=== PATIENT | male | born 1980 | race Caucasian/White ===

== ENCOUNTER 2016-10-08 11:00 | Emergency (ER) | payer OTHER ==
--- NOTE | 2016-10-08 11:24 | ED NURSING NOTES ---
Clinical Report - Nurses [facility] [address] [place] [address] 10/08/2016 11:03 Patient: NIKOS BANG TRIAGE Triage time 11:08. Acuity: LEVEL 5. Chief Complaint: CAT BITE. --11:15 Carter Cannon R.N. 11:08 10/08/16. BP: 148/93. HR: 86. RR: 16. O2 saturation: 100%. Temp: 98 F (oral). --11:15 Carter Cannon R.N. Weight: 90.7 kg. Height/Length: 71 inches. BMI: 27.9. --11:15 Carter Cannon R.N. Medications Dexilant Oral (Capsule Delayed Release 60 mg) 1 capsule, daily. Ondansetron HCl Oral. PriLOSEC Oral 20 mg, daily. Propranolol HCl Oral (Tablet 40 mg) 1-1/2 tablets, 3x a day. Venlafaxine HCl ER Oral (Tablet Extended Release 24 Hour 75 mg) 1 tablet, daily. Zaleplon Oral (Capsule 5 mg) 1-2 capsules, at hs. --11:12 Carter Cannon R.N. Medication/allergy information source: the patient. --11:15 Carter Cannon R.N. Allergies No Known Drug Allergy. --11:12 Carter Cannon R.N. History Arrived by private vehicle. Historian: patient. ( Cat bit on his left hand as he was trying to pick the cat up and scratched his left and right arm as it was trying to get away.). Location of injuries: right forearm, right wrist, right hand, left forearm, left wrist and left hand. This occurred last night. Occurred at home. Circumstances: This was an "unprovoked" attack. The patient has had bloody drainage from wound since initial complaint (today). The animal reportedly appeared well and is up to date on immunizations. Treatment ADMISSION LIAISON: Performed wound care and applied bandage. Took ibuprofen. PAST MEDICAL HX: Date of last tetanus shot cannot be recalled. SOCIAL HX: Smoker- current status unknown (vape). --11:15 Carter Cannon R.N. Interventions ID band on patient. To room. --11:15 Carter Cannon R.N. PHYSICAL ASSESSMENT Ambulatory to room. GENERAL / NEURO / PSYCH: Alert. Oriented X 4. Appears in no acute distress. HEENT: Pupils equal, round and reactive to light. Head non-tender. RESPIRATORY: Respirations not labored. Breath sounds within normal limits. CVS: Normal heart rate and rhythm. Pulses within normal limits. Capillary refill less than 2 seconds. EXTREMITIES: Extremities exhibit normal ROM. Neuro-vascular status intact to the extremity. SKIN: Skin is warm and dry. ( abrasions on both arms and cat bite on the left hand). --11:16 Carter Cannon R.N. NURSING PROGRESS NOTES Reassurance given. Patient identifiers checked. Side rails up x 1. Bed placed in lowest position. Brakes of bed on. Patient ready for evaluation- OIL PROCESSING TECHNICIAN notified. --11:16 Carter Cannon R.N. DISPOSITION / DISCHARGE Condition at departure: improved. No learning barriers present. Discharge instructions provided and reviewed with the patient and parent. Patient verbalized understanding. Written instructions provided in Indonesian. The patient was discharged home and accompanied by parent. He left the Emergency Department ambulatory and via private vehicle. Parent driving. --: Carter Cannon R.N. 11:26 10/08/16. BP: 114/55. HR: 56. RR: 16. O2 saturation: 99%. Temp: 98.4 F. Pain level now: 06/26. --11:27 Carter Cannon R.N. Departure time: :. --11: Carter Cannon R.N. Locked/Released at 10/08/2016 11:28 by Carter Cannon R.N.
--- NOTE | 2016-10-08 11:24 | ED NURSING NOTES ---
Clinical Report - Nurses [facility] [address] [place] [address] 10/08/2016 11:03 Patient: NIKOS BANG TRIAGE Triage time 11:08. Acuity: LEVEL 5. Chief Complaint: CAT BITE. --11:15 Carter Cannon R.N. 11:08 10/08/16. BP: 148/93. HR: 86. RR: 16. O2 saturation: 100%. Temp: 98 F (oral). --11:15 Carter Cannon R.N. Weight: 90.7 kg. Height/Length: 71 inches. BMI: 27.9. --11:15 Carter Cannon R.N. Medications Dexilant Oral (Capsule Delayed Release 60 mg) 1 capsule, daily. Ondansetron HCl Oral. PriLOSEC Oral 20 mg, daily. Propranolol HCl Oral (Tablet 40 mg) 1-1/2 tablets, 3x a day. Venlafaxine HCl ER Oral (Tablet Extended Release 24 Hour 75 mg) 1 tablet, daily. Zaleplon Oral (Capsule 5 mg) 1-2 capsules, at hs. --11:12 Carter Cannon R.N. Medication/allergy information source: the patient. --11:15 Carter Cannon R.N. Allergies No Known Drug Allergy. --11:12 Carter Cannon R.N. History Arrived by private vehicle. Historian: patient. ( Cat bit on his left hand as he was trying to pick the cat up and scratched his left and right arm as it was trying to get away.). Location of injuries: right forearm, right wrist, right hand, left forearm, left wrist and left hand. This occurred last night. Occurred at home. Circumstances: This was an "unprovoked" attack. The patient has had bloody drainage from wound since initial complaint (today). The animal reportedly appeared well and is up to date on immunizations. 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 Took ibuprofen. PAST MEDICAL HX: Date of last tetanus shot cannot be recalled. SOCIAL HX: Smoker- current status unknown (vape). --11:15 Carter Cannon R.N. Interventions ID band on patient. To room. --11:15 Carter Cannon R.N. PHYSICAL ASSESSMENT Ambulatory to room. GENERAL / NEURO / PSYCH: Alert. Oriented X 4. Appears in no acute distress. HEENT: Pupils equal, round and reactive to light. Head non-tender. RESPIRATORY: Respirations not labored. Breath sounds within normal limits. CVS: Normal heart rate and rhythm. Pulses within normal limits. Capillary refill less than 2 seconds. EXTREMITIES: Extremities exhibit normal ROM. Neuro-vascular status intact to the extremity. SKIN: Skin is warm and dry. ( abrasions on both arms and cat bite on the left hand). --11:16 Carter Cannon R.N. NURSING PROGRESS NOTES Reassurance given. Patient identifiers checked. Side rails up x 1. Bed placed in lowest position. Brakes of bed on. Patient ready for evaluation- CONCRETE BLOCK PLANT SUPERVISOR notified. --11:16 Carter Cannon R.N. DISPOSITION / DISCHARGE Condition at departure: improved. No learning barriers present. Discharge instructions provided and reviewed with the patient and parent. Patient verbalized understanding. Written instructions provided in Mongolian. The patient was discharged home and accompanied by parent. He left the Emergency Department ambulatory and via private vehicle. Parent driving. --: Carter Cannon R.N. 11:26 10/08/16. BP: 114/55. HR: 56. RR: 16. O2 saturation: 99%. Temp: 98.4 F. Pain level now: 06/26. --11:27 Carter Cannon R.N. Departure time: :. --11: Carter Cannon R.N. Locked/Released at 10/08/2016 11:28 by Carter Cannon R.N.
--- NOTE | 2016-10-08 11:25 | ED ORDER SUMMARY ---
..... Patient: NIKOS BANG OrderSheet [facility] VisitID: [id number] [place] [address] 35y, M Registration Date/Time: 10/08/2016 ORDER SHEET Weight: 90.7 kg Allergies: No Known Drug Allergy GENERAL ORDERS: Dress Wounds (gauze with kerlex) (bacitracin) (both wrist/hands) (10/08/2016 Akash Tejeda) Irrigate Wounds (10/08/2016 Akash Tejeda) MEDICATION ORDERS: Augmentin PO 875 mg (NOW) (10/08/2016 Akash Tejeda) Etpdckn-Osbaje-Iswju Pertussis IM 0.5 mL (NOW, per protocol) (10/08/2016 Akash Tejeda) Percocet PO 10/650 mg (HIGH ALERT MEDICATION, NOW) (10/08/2016 Akash Tejeda) IV FLUIDS: ORDER SHEET NOTES: [Electronically signed by Carter Cannon R.N. (10/08/2016)] [Electronically signed by Rio Morales Dr. (05:40 10/12/2016)] [Electronically locked/signed by Carter Cannon R.N. (10/08/2016)]
--- NOTE | 2016-10-08 11:25 | ED ORDER SUMMARY ---
..... Patient: NIKOS BANG OrderSheet [facility] VisitID: [id number] [place] [address] 35y, M Registration Date/Time: 10/08/2016 ORDER SHEET Weight: 90.7 kg Allergies: No Known Drug Allergy GENERAL ORDERS: Dress Wounds (gauze with kerlex) (bacitracin) (both wrist/hands) (10/08/2016 Akash Tejeda) Irrigate Wounds (10/08/2016 Akash Tejeda) MEDICATION ORDERS: Augmentin PO 875 mg (NOW) (10/08/2016 Akash Tejeda) Mybhggp-Rtjtbc-Uelcl Pertussis IM 0.5 mL (NOW, per protocol) (10/08/2016 Akash Tejeda) Percocet PO 10/650 mg (HIGH ALERT MEDICATION, NOW) (10/08/2016 Akash Tejeda) IV FLUIDS: ORDER SHEET NOTES: [Electronically signed by Carter Cannon R.N. (10/08/2016)] [Electronically signed by Rio Morales Dr. (05:40 10/12/2016)] [Electronically locked/signed by Carter Cannon R.N. (10/08/2016)]
--- NOTE | 2016-10-08 11:27 | ED CLINICAL REPORT ---
Clinical Report - Physicians/Mid Levels [facility] [address] [address] 10/08/2016 11:03 Patient: NIKOS BANG Time Seen: 1115. Arrived- By private vehicle. Historian- patient. HISTORY OF PRESENT ILLNESS Chief Complaint: CAT BITE. Location of injuries- right wrist and right hand and left hand. The injury occurred last night. The animal reportedly appeared well, is up to date on immunizations and can be observed for ten days. Occurred at home. This was an "unprovoked" attack. (picked up cat to put it outsided). The patient has had swelling. He has had drainage (left had). 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 REVIEW OF SYSTEMS The patient has had swelling. No difficulty breathing, chest pain, fever or abdominal pain. All systems otherwise negative, except as recorded above. PAST HISTORY See nurses notes. Tetanus immunization status is unknown. Medications: Dexilant Oral (Capsule Delayed Release 60 mg) 1 capsule, daily. Ondansetron HCl Oral. PriLOSEC Oral 20 mg, daily. Propranolol HCl Oral (Tablet 40 mg) 1-1/2 tablets, 3x a day. Venlafaxine HCl ER Oral (Tablet Extended Release 24 Hour 75 mg) 1 tablet, daily. Zaleplon Oral (Capsule 5 mg) 1-2 capsules, at hs. Allergies: No Known Drug Allergy. SOCIAL HISTORY Never smoker. No alcohol use or drug use. Is a local resident. ADDITIONAL NOTES The nursing notes have been reviewed. PHYSICAL EXAM Vital Signs: 10/08/2016 11:08 BP: 148/93. HR: 86. RR: 16. O2 saturation: 100%. Temp: 98 F. Blood pressure normal. Oxygen saturation normal. Appearance: Alert. Oriented X3. No acute distress. Head: Head normal on inspection. No Stoll's sign or raccoon eyes. ENT: Ears normal on inspection. Nose normal on inspection. Mouth normal on inspection. Neck: Painless ROM. CVS: (cap refill < 3 sec. no cyanosis.). Respiratory: (no respiratory distress. normal effort. no stridor.). Skin: Skin intact. Skin warm and dry. Normal skin color. Normal skin turgor. (excpet for superficial abrasions to the left wrist and bilateral hands. small wound to the dorsum of the left hand just distal to the index MCP joint. No drainage. Area of cellulitis that measures 5 Cm at largest diameter. no masses. no active bleeding. no FB. no crepitus. Full ROM. sensation intact.). Extremities: Normal inspection. Pelvis stable. Extremities atraumatic. No lower extremity edema. Neuro: No motor deficit. No sensory deficit. PROGRESS AND PROCEDURES Course of Care: the patient is a pleasant 35-year-old male no pertinent past medical history presenting for reevaluation of injury secondary to cat scratch/bite's. Patient with area of erythema. No foreign bodies noted on patient's examination. No concern for deeper-type infection. Patient will be treated with Augmentin. Tetanus will also be updated. Offered patient pain medication while here in the emergency department. Patient tolerated medications well. Pain is improved while here in the emergency department. Patient continues to be nontoxic and in no acute distress. No evidence of sepsis at this time. Do not fill patient is being admitted to the hospital require further emergency department workup/evaluation. Patient's significant other is a staff here at the hospital and we'll monitor the patient didn't bring him immediately back for any worsening of his symptoms. Patient is otherwise a stable outpatient candidate. Patient appears to be reliable. Repeat examination continues to be benign. Disposition: Discharged. Condition: good. CLINICAL IMPRESSION 10/08/2016 11:08 BP: 148/93. HR: 86. RR: 16. O2 saturation: 100%. Temp: 98 F. Oxygen saturation normal. Cat bite (left hand). Cellulitis (left hand). Multiple superficial abrasions. (bilateral hand/wrists). need for tetanus booster, acute. INSTRUCTIONS Off work today. Warnings: SEDATIVE MEDICATION: You were given sedative medication during your visit. Do not drive or operate dangerous machinery. CONTROLLED SUBSTANCE WARNINGS. GENERAL WARNINGS: Return or contact your physician immediately if your condition worsens or changes unexpectedly, if not improving as expected, or if other problems arise. Specifically return if pain, vomiting, bleeding, breathing difficulty or fever. Your Current Medications: CONTINUE TAKING THE FOLLOWING MEDICATIONS: Dexilant Oral : Capsule Delayed Release 60 mg, 1 capsule daily. Ondansetron HCl Oral. PriLOSEC Oral : 20 mg daily. Propranolol HCl Oral : Tablet 40 mg, 1-1/2 tablets 3x a day. Venlafaxine HCl ER Oral : Tablet Extended Release 24 Hour 75 mg, 1 tablet daily. Zaleplon Oral : Capsule 5 mg, 1-2 capsules at hs. Prescription Medications: Augmentin 875 mg: take 1 tablet orally every 12 hours for 10 days. No refill. Substitution is permissible. (disp 20 tabs) Percocet 5 mg/325 mg: take 1 tablet orally every 6 hours as needed for pain. Dispense ten (10). No refill. Substitution is permissible. Follow-up: Return to the emergency department as needed. Follow up with your doctor in three days. Reason for referral: recheck today's concerns. Summary of care provided to patient via paper. Screening today revealed the patient's blood pressure to be in the hypertensive range. The patient should follow up with a primary care provider for blood pressure management. Understanding of the discharge instructions verbalized by patient. (Electronically signed by Rio Morales Dr. 10/12/2016 5:40) Addenda for NIKOS BANG VisitID: [id number] Date: 10/08/2016 10/08/2016 11:39 Augmentin (Amoxicillin-Pot Clavulanate) PO 875 mg given. Allergies verified and confirmed 5 rights. (Electronically signed by Carter Cannon R.N. - 10/08/2016 11:39) 10/08/2016 11:41 [id number] PERTUSSIS IM 0.5 mL given. (Lot#: [id number], expiration date: 09/24/2018, Medical Office Representative: sanofi pasteur). Given in the right deltoid. Allergies verified and confirmed 5 rights. Vaccine information statement provided to the patient. (Electronically signed by Carter Cannon R.N. - 10/08/2016 11:41) 10/08/2016 11:42 Percocet (Oxycodone-Acetaminophen) PO 10/650 mg Tablets 1 tab given. Allergies verified, confirmed 5 rights and sedative warning given to the patient. (Electronically signed by Carter Cannon R.N. - 10/08/2016 11:42) 10/08/2016 11:49 Patient's VS upon discharge: BP 127/72 DE 70 T 98 F RR 16 O2SAT 100 PAIN 7/10 PATIENT GIVEN DISCHARGE INSTRUCTIONS AND PRECRIPTION FOR AUGMENTIN AND PERCOCET AND UNDERSTOOD THE INSTRUCTIONS. DISCHARGE HOME WITH HIS GIRLFRIEND. (Electronically signed by Carter Cannon R.N. - 10/08/2016 11:49)
--- NOTE | 2016-10-08 11:27 | ED CLINICAL REPORT ---
Clinical Report - Physicians/Mid Levels [facility] [address] [address] 10/08/2016 11:03 Patient: NIKOS BANG Time Seen: 1115. Arrived- By private vehicle. Historian- patient. HISTORY OF PRESENT ILLNESS Chief Complaint: CAT BITE. Location of injuries- right wrist and right hand and left hand. The injury occurred last night. The animal reportedly appeared well, is up to date on immunizations and can be observed for ten days. Occurred at home. This was an "unprovoked" attack. (picked up cat to put it outsided). The patient has had swelling. He has had drainage (left had). 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 REVIEW OF SYSTEMS The patient has had swelling. No difficulty breathing, chest pain, fever or abdominal pain. All systems otherwise negative, except as recorded above. PAST HISTORY See nurses notes. Tetanus immunization status is unknown. Medications: Dexilant Oral (Capsule Delayed Release 60 mg) 1 capsule, daily. Ondansetron HCl Oral. PriLOSEC Oral 20 mg, daily. Propranolol HCl Oral (Tablet 40 mg) 1-1/2 tablets, 3x a day. Venlafaxine HCl ER Oral (Tablet Extended Release 24 Hour 75 mg) 1 tablet, daily. Zaleplon Oral (Capsule 5 mg) 1-2 capsules, at hs. Allergies: No Known Drug Allergy. SOCIAL HISTORY Never smoker. No alcohol use or drug use. Is a local resident. ADDITIONAL NOTES The nursing notes have been reviewed. PHYSICAL EXAM Vital Signs: 10/08/2016 11:08 BP: 148/93. HR: 86. RR: 16. O2 saturation: 100%. Temp: 98 F. Blood pressure normal. Oxygen saturation normal. Appearance: Alert. Oriented X3. No acute distress. Head: Head normal on inspection. No Stoll's sign or raccoon eyes. ENT: Ears normal on inspection. Nose normal on inspection. Mouth normal on inspection. Neck: Painless ROM. CVS: (cap refill < 3 sec. no cyanosis.). Respiratory: (no respiratory distress. normal effort. no stridor.). Skin: Skin intact. Skin warm and dry. Normal skin color. Normal skin turgor. (excpet for superficial abrasions to the left wrist and bilateral hands. small wound to the dorsum of the left hand just distal to the index MCP joint. No drainage. Area of cellulitis that measures 5 Cm at largest diameter. no masses. no active bleeding. no FB. no crepitus. Full ROM. sensation intact.). Extremities: Normal inspection. Pelvis stable. Extremities atraumatic. No lower extremity edema. Neuro: No motor deficit. No sensory deficit. PROGRESS AND PROCEDURES Course of Care: the patient is a pleasant 35-year-old male no pertinent past medical history presenting for reevaluation of injury secondary to cat scratch/bite's. Patient with area of erythema. No foreign bodies noted on patient's examination. No concern for deeper-type infection. Patient will be treated with Augmentin. Tetanus will also be updated. Offered patient pain medication while here in the emergency department. Patient tolerated medications well. Pain is improved while here in the emergency department. Patient continues to be nontoxic and in no acute distress. No evidence of sepsis at this time. Do not fill patient is being admitted to the hospital require further emergency department workup/evaluation. Patient's significant other is a staff here at the hospital and we'll monitor the patient didn't bring him immediately back for any worsening of his symptoms. Patient is otherwise a stable outpatient candidate. Patient appears to be reliable. Repeat examination continues to be benign. Disposition: Discharged. Condition: good. CLINICAL IMPRESSION 10/08/2016 11:08 BP: 148/93. HR: 86. RR: 16. O2 saturation: 100%. Temp: 98 F. Oxygen saturation normal. Cat bite (left hand). Cellulitis (left hand). Multiple superficial abrasions. (bilateral hand/wrists). need for tetanus booster, acute. INSTRUCTIONS Off work today. Warnings: SEDATIVE MEDICATION: You were given sedative medication during your visit. Do not drive or operate dangerous machinery. CONTROLLED SUBSTANCE WARNINGS. GENERAL WARNINGS: Return or contact your physician immediately if your condition worsens or changes unexpectedly, if not improving as expected, or if other problems arise. Specifically return if pain, vomiting, bleeding, breathing difficulty or fever. Your Current Medications: CONTINUE TAKING THE FOLLOWING MEDICATIONS: Dexilant Oral : Capsule Delayed Release 60 mg, 1 capsule daily. Ondansetron HCl Oral. PriLOSEC Oral : 20 mg daily. Propranolol HCl Oral : Tablet 40 mg, 1-1/2 tablets 3x a day. Venlafaxine HCl ER Oral : Tablet Extended Release 24 Hour 75 mg, 1 tablet daily. Zaleplon Oral : Capsule 5 mg, 1-2 capsules at hs. Prescription Medications: Augmentin 875 mg: take 1 tablet orally every 12 hours for 10 days. No refill. Substitution is permissible. (disp 20 tabs) Percocet 5 mg/325 mg: take 1 tablet orally every 6 hours as needed for pain. Dispense ten (10). No refill. Substitution is permissible. Follow-up: Return to the emergency department as needed. Follow up with your doctor in three days. Reason for referral: recheck today's concerns. Summary of care provided to patient via paper. Screening today revealed the patient's blood pressure to be in the hypertensive range. The patient should follow up with a primary care provider for blood pressure management. Understanding of the discharge instructions verbalized by patient. (Electronically signed by Rio Morales Dr. 10/12/2016 5:40) Addenda for NIKOS BANG VisitID: [id number] Date: 10/08/2016 10/08/2016 11:39 Augmentin (Amoxicillin-Pot Clavulanate) PO 875 mg given. Allergies verified and confirmed 5 rights. (Electronically signed by Carter Cannon R.N. - 10/08/2016 11:39) 10/08/2016 11:41 [id number]-[id number] PERTUSSIS IM 0.5 mL given. (Lot#: [id number], expiration date: 09/24/2018, Material Preparation Worker: sanofi pasteur). Given in the right deltoid. Allergies verified and confirmed 5 rights. Vaccine information statement provided to the patient. (Electronically signed by Carter Cannon R.N. - 10/08/2016 11:41) 10/08/2016 11:42 Percocet (Oxycodone-Acetaminophen) PO 10/650 mg Tablets 1 tab given. Allergies verified, confirmed 5 rights and sedative warning given to the patient. (Electronically signed by Carter Cannon R.N. - 10/08/2016 11:42) 10/08/2016 11:49 Patient's VS upon discharge: BP 127/72 DE 70 T 98 F RR 16 O2SAT 100 PAIN 7/10 PATIENT GIVEN DISCHARGE INSTRUCTIONS AND PRECRIPTION FOR AUGMENTIN AND PERCOCET AND UNDERSTOOD THE INSTRUCTIONS. DISCHARGE HOME WITH HIS GIRLFRIEND. (Electronically signed by Carter Cannon R.N. - 10/08/2016 11:49)
--- NOTE | 2016-10-12 05:40 | ED MED RECONCILIATION SUMMARY ---
Patient: NIKOS BANG Medication Reconciliation Report [facility] VisitID: [id number] [place] [address] 35y, M Registration Date/Time: 10/08/2016 Weight: 90.7 kg Height/Length: 71 in. BMI: 27.9 ALLERGIES: No Known Drug Allergy The patient's Home Medications are listed below: CONTINUE TAKING THE FOLLOWING MEDICATIONS: Dexilant Oral (60 mg) 1 capsule, daily Ondansetron HCl Oral PriLOSEC Oral 20 mg, daily Propranolol HCl Oral (40 mg) 1-1/2 tablets, 3x a day Venlafaxine HCl ER Oral (75 mg) 1 tablet, daily Zaleplon Oral (5 mg) 1-2 capsules, at hs The source(s) of the original Home Medication information: patient The following Medications were given to the patient in the Emergency Department: Augmentin [PO] PO 875 mg, administered: 10/08/2016 11:39:00 AM SJIMBAJ-JOMTVN-PRSKW PERTUSSIS [IM] IM 0.5 mL, administered: 10/08/2016 11:41:00 AM Percocet [PO] PO 1 tab, administered: 10/08/2016 11:41:00 AM The following Medications were prescribed to the patient: Augmentin 875 mg: take 1 tablet orally every 12 hours for 10 days. No refill. Substitution is permissible.(disp 20 tabs) -- Rio Morales Dr. Percocet 5 mg/325 mg: take 1 tablet orally every 6 hours as needed for pain. Dispense ten (10). No refill. Substitution is permissible. -- Rio Morales Dr.
--- NOTE | 2016-10-12 05:40 | ED MAR SUMMARY ---
..... Medication Administration Record [facility] [address] [place] [address] Patient: NIKOS BANG Visit ID: [id number] 35y, M Weight: 90.7 kg Height/Length: 71 in BMI: 27.9 ALLERGIES: No Known Drug Allergy Given 11:39 10/08/2016 Carter Cannon RLisaNLisa Medication Administered: AUGMENTIN [PO] (AMOXICILLIN-POT CLAVULANATE), Dose: 875 mg PO. Medication Ordered: Augmentin PO 875 mg (NOW). Given 11:41 10/08/2016 Carter Cannon RLisaNLisa Medication Administered: CDXTBLX-UZJFWH-ERQTU PERTUSSIS [IM], Dose: 0.5 mL IM. Medication Ordered: Newnpwh-Tkuxlh-Wwver Pertussis IM 0.5 mL (NOW, per protocol). Given 11:10/08/2016 Carter Cannon RLisaN. Medication Administered: PERCOCET [PO] (OXYCODONE-ACETAMINOPHEN), Dose: 1 tab 10/650 mg Tablets PO. Medication Ordered: Percocet PO 10/650 mg (HIGH ALERT MEDICATION, NOW).
--- NOTE | 2016-10-12 05:40 | ED DISCHARGE INSTRUCTIONS ---
Patient: NIKOS BANG General Instructions [facility] VisitID: [id number] [place] [address] 35y, M Registration Date/Time: 10/08/2016 10/08/2016 11:08 BP: 148/93. HR: 86. RR: 16. O2 saturation: 100%. Temp: 98 F. Oxygen saturation normal. Cat bite (left hand). Cellulitis (left hand). Multiple superficial abrasions. (bilateral hand/wrists). need for tetanus booster, acute. INSTRUCTIONS Off work today. Warnings: SEDATIVE MEDICATION: You were given sedative medication during your visit. Do not drive or operate dangerous machinery. CONTROLLED SUBSTANCE WARNINGS. GENERAL WARNINGS: Return or contact your physician immediately if your condition worsens or changes unexpectedly, if not improving as expected, or if other problems arise. Specifically return if pain, vomiting, bleeding, breathing difficulty or fever. Your Current Medications: CONTINUE TAKING THE FOLLOWING MEDICATIONS: Dexilant Oral : Capsule Delayed Release 60 mg, 1 capsule daily. Ondansetron HCl Oral. PriLOSEC Oral : 20 mg daily. Propranolol HCl Oral : Tablet 40 mg, 1-1/2 tablets 3x a day. Venlafaxine HCl ER Oral : Tablet Extended Release 24 Hour 75 mg, 1 tablet daily. Zaleplon Oral : Capsule 5 mg, 1-2 capsules at hs. Prescription Medications: Augmentin 875 mg: take 1 tablet orally every 12 hours for 10 days. No refill. Substitution is permissible. (disp 20 tabs) Percocet 5 mg/325 mg: take 1 tablet orally every 6 hours as needed for pain. Dispense ten (10). No refill. Substitution is permissible. Follow-up: Return to the emergency department as needed. Follow up with your doctor in three days. Reason for referral: recheck today's concerns. Summary of care provided to patient via paper. Screening today revealed the patient's blood pressure to be in the hypertensive range. The patient should follow up with a primary care provider for blood pressure management. Understanding of the discharge instructions verbalized by patient. ADDITIONAL INFORMATION Cellulitis You have an infection of the skin known as cellulitis. This usually starts with a scrape, cut, insect bite, blister or other opening in the skin which becomes infected. This is a serious condition. It must be watched closely to be sure the infection is not spreading. With antibiotic treatment, the size of the red area will gradually shrink in size until the skin returns to normal. This will take 7-10 days. The red area should never increase in size once the antibiotic medicine has been started. Occasionally, an infection will be resistant to one antibiotic and another one will have to be used. Home Care: 1) Limit the use of the affected part, since excess movement can cause the infection to spread. 2) If the infection is on your leg, walk as little as possible during the first few days of the treatment. Keep your leg elevated while sitting. This will reduce swelling. 3) Take all of the antibiotic medicine exactly as directed until it is gone. Be careful not to miss any doses, especially during the first seven days. Follow Up with your doctor or this facility as directed. Check the infected area daily for the warning signs listed below. Get Prompt Medical Attention if any of the following occur: -- Spreading area of redness -- Increasing swelling or pain -- Appearance of pus or drainage -- Fever over 100.4 F (38.0 C) oral, or over 101.4 F (38.6 C) rectal, after two days on antibiotics Amoxicillin Trihydrate, Clavulanate Potassium Oral tablet What is this medicine? AMOXICILLIN; CLAVULANIC ACID (a mox i FANNY in; CHRIS de id) is a penicillin antibiotic. It is used to treat certain kinds of bacterial infections. It will not work for colds, flu, or other viral infections. How should I use this medicine? Take this medicine by mouth with a full glass of water. Follow the directions on the prescription label. Take at the start of a meal. Do not crush or chew. If the tablet has a score line, you may cut it in half at the score line for easier swallowing. Take your medicine at regular intervals. Do not take your medicine more often than directed. Take all of your medicine as directed even if you think you are better. Do not skip doses or stop your medicine early. Talk to your dry kiln burner regarding the use of this medicine in children. Special care may be needed. What side effects may I notice from receiving this medicine? Side effects that you should report to your doctor or health animal caregiver as soon as possible: allergic reactions like skin rash, itching or hives, swelling of the face, lips, or tongue breathing problems dark urine fever or chills, sore throat redness, blistering, peeling or loosening of the skin, including inside the mouth seizures trouble passing urine or change in the amount of urine unusual bleeding, bruising unusually weak or tired white patches or sores in the mouth or throat Side effects that usually do not require medical attention (report to your doctor or health animal caregiver if they continue or are bothersome): diarrhea dizziness headache nausea, vomiting stomach upset vaginal or anal irritation What may interact with this medicine? allopurinol anticoagulants control pills methotrexate probenecid What if I miss a dose? If you miss a dose, take it as soon as you can. If it is almost time for your next dose, take only that dose. Do not take double or extra doses. Where should I keep my medicine? Keep out of the reach of children. Store at room temperature below 25 degrees C (77 degrees F). Keep container tightly closed. Throw away any unused medicine after the expiration date. What should I tell my health care provider before I take this medicine? They need to know if you have any of these conditions: bowel disease, like colitis kidney disease liver disease mononucleosis an unusual or allergic reaction to amoxicillin, penicillin, cephalosporin, other antibiotics, clavulanic acid, other medicines, foods, dyes, or preservatives or trying to get breast-feeding What should I watch for while using this medicine? Tell your doctor or health animal caregiver if your symptoms do not improve. Do not treat diarrhea with over the counter products. Contact your doctor if you have diarrhea that lasts more than 2 days or if it is severe and watery. If you have diabetes, you may get a false-positive result for sugar in your urine. Check with your doctor or health animal caregiver. control pills may not work properly while you are taking this medicine. Talk to your doctor about using an extra method of control. Oxycodone Hydrochloride, Acetaminophen Oral tablet What is this medicine? ACETAMINOPHEN; OXYCODONE (a set a LUCÍA zion fen; ox i KOE done) is a pain reliever. It is used to treat mild to moderate pain. How should I use this medicine? Take this medicine by mouth with a full glass of water. Follow the directions on the prescription label. Take your medicine at regular intervals. Do not take your medicine more often than directed. Talk to your dry kiln burner regarding the use of this medicine in children. Special care may be needed. Patients over 65 years old may have a stronger reaction and need a smaller dose. What side effects may I notice from receiving this medicine? Side effects that you should report to your doctor or health animal caregiver as soon as possible: allergic reactions like skin rash, itching or hives, swelling of the face, lips, or tongue breathing difficulties, wheezing confusion light headedness or fainting spells severe stomach pain yellowing of the skin or the whites of the eyes Side effects that usually do not require medical attention (report to your doctor or health animal caregiver if they continue or are bothersome): dizziness drowsiness nausea vomiting What may interact with this medicine? alcohol antihistamines barbiturates like amobarbital, butalbital, butabarbital, methohexital, pentobarbital, phenobarbital, thiopental, and secobarbital benztropine drugs for bladder problems like solifenacin, trospium, oxybutynin, tolterodine, hyoscyamine, and methscopolamine drugs for breathing problems like ipratropium and tiotropium drugs for certain stomach or intestine problems like propantheline, homatropine methylbromide, glycopyrrolate, atropine, belladonna, and dicyclomine general anesthetics like etomidate, ketamine, nitrous oxide, propofol, desflurane, enflurane, halothane, isoflurane, and sevoflurane medicines for depression, anxiety, or psychotic disturbances medicines for sleep muscle relaxants naltrexone narcotic medicines (opiates) for pain phenothiazines like perphenazine, thioridazine, chlorpromazine, mesoridazine, fluphenazine, prochlorperazine, promazine, and trifluoperazine scopolamine tramadol trihexyphenidyl What if I miss a dose? If you miss a dose, take it as soon as you can. If it is almost time for your next dose, take only that dose. Do not take double or extra doses. Where should I keep my medicine? Keep out of the reach of children. This medicine can be abused. Keep your medicine in a safe place to protect it from theft. Do not share this medicine with anyone. Selling or giving away this medicine is dangerous and against the law. Store at room temperature between 20 and 25 degrees C (68 and 77 degrees F). Keep container tightly closed. Protect from light. This medicine may cause accidental overdose and if it is taken by other adults, children, or pets. Flush any unused medicine down the toilet to reduce the chance of harm. Do not use the medicine after the expiration date. What should I tell my health care provider before I take this medicine? They need to know if you have any of these conditions: brain tumor Crohn's disease, inflammatory bowel disease, or ulcerative colitis drink more than 3 alcohol containing drinks per day drug abuse or addiction head injury heart or circulation problems kidney disease or problems going to the bathroom liver disease lung disease, asthma, or breathing problems an unusual or allergic reaction to acetaminophen, oxycodone, other opioid analgesics, other medicines, foods, dyes, or preservatives or trying to get breast-feeding What should I watch for while using this medicine? Tell your doctor or health animal caregiver if your pain does not go away, if it gets worse, or if you have new or a different type of pain. You may develop tolerance to the medicine. Tolerance means that you will need a higher dose of the medication for pain relief. Tolerance is normal and is expected if you take this medicine for a long time. Do not suddenly stop taking your medicine because you may develop a severe reaction. Your body becomes used to the medicine. This does NOT mean you are addicted. Addiction is a behavior related to getting and using a drug for a non-medical reason. If you have pain, you have a medical reason to take pain medicine. Your doctor will tell you how much medicine to take. If your doctor wants you to stop the medicine, the dose will be slowly lowered over time to avoid any side effects. You may get drowsy or dizzy. Do not drive, use machinery, or do anything that needs mental alertness until you know how this medicine affects you. Do not stand or sit up quickly, especially if you are an older patient. This reduces the risk of dizzy or fainting spells. Alcohol may interfere with the effect of this medicine. Avoid alcoholic drinks. There are different types of narcotic medicines (opiates) for pain. If you take more than one type at the same time, you may have more side effects. Give your health care provider a list of all medicines you use. Your doctor will tell you how much medicine to take. Do not take more medicine than directed. Call emergency for help if you have problems breathing. The medicine will cause constipation. Try to have a bowel movement at least every 2 to 3 days. If you do not have a bowel movement for 3 days, call your doctor or health animal caregiver. Do not take Tylenol (acetaminophen) or medicines that have acetaminophen with this medicine. Too much acetaminophen can be very dangerous. Many nonprescription medicines contain acetaminophen. Always read the labels carefully to avoid taking more acetaminophen. You have been given the following additional information: Cellulitis Amoxicillin Trihydrate, Clavulanate Potassium Oral tablet Oxycodone Hydrochloride, Acetaminophen Oral tablet Off work today. (Electronically signed by Rio Morales Dr. 10/12/2016 5:40)
--- NOTE | 2016-10-12 05:40 | ED MED RECONCILIATION SUMMARY ---
Patient: NIKOS BANG Medication Reconciliation Report [facility] VisitID: [id number] [place] [address] 35y, M Registration Date/Time: 10/08/2016 Weight: 90.7 kg Height/Length: 71 in. BMI: 27.9 ALLERGIES: No Known Drug Allergy The patient's Home Medications are listed below: CONTINUE TAKING THE FOLLOWING MEDICATIONS: Dexilant Oral (60 mg) 1 capsule, daily Ondansetron HCl Oral PriLOSEC Oral 20 mg, daily Propranolol HCl Oral (40 mg) 1-1/2 tablets, 3x a day Venlafaxine HCl ER Oral (75 mg) 1 tablet, daily Zaleplon Oral (5 mg) 1-2 capsules, at hs The source(s) of the original Home Medication information: patient The following Medications were given to the patient in the Emergency Department: Augmentin [PO] PO 875 mg, administered: 10/08/2016 11:39:00 AM [id number] PERTUSSIS [IM] IM 0.5 mL, administered: 10/08/2016 11:41:00 AM Percocet [PO] PO 1 tab, administered: 10/08/2016 11:41:00 AM The following Medications were prescribed to the patient: Augmentin 875 mg: take 1 tablet orally every 12 hours for 10 days. No refill. Substitution is permissible.(disp 20 tabs) -- Rio Morales Dr. Percocet 5 mg/325 mg: take 1 tablet orally every 6 hours as needed for pain. Dispense ten (10). No refill. Substitution is permissible. -- Rio Morales Dr.
--- NOTE | 2016-10-12 05:40 | ED MAR SUMMARY ---
..... Medication Administration Record [facility] [address] [place] [address] Patient: NIKOS BANG Visit ID: [id number] 35y, M Weight: 90.7 kg Height/Length: 71 in BMI: 27.9 ALLERGIES: No Known Drug Allergy Given 11:39 10/08/2016 Carter Cannon RLisaNLisa Medication Administered: AUGMENTIN [PO] (AMOXICILLIN-POT CLAVULANATE), Dose: 875 mg PO. Medication Ordered: Augmentin PO 875 mg (NOW). Given 11:41 10/08/2016 Carter Cannon RLisaNLisa Medication Administered: [id number] PERTUSSIS [IM], Dose: 0.5 mL IM. Medication Ordered: Zbeillc-Heijst-Jvjwz Pertussis IM 0.5 mL (NOW, per protocol). Given 11:10/08/2016 Carter Cannon RLisaN. Medication Administered: PERCOCET [PO] (OXYCODONE-ACETAMINOPHEN), Dose: 1 tab 10/650 mg Tablets PO. Medication Ordered: Percocet PO 10/650 mg (HIGH ALERT MEDICATION, NOW).
== END 2016-10-08 11:55 | disposition home or self-care (01) ==
LOC: ED SRH 11:00
DX: S61.552A Open bite of left wrist, initial encounter (principal); L03.114 Cellulitis of left upper limb; S60.512A Abrasion of left hand, initial encounter; S60.511A Abrasion of right hand, initial encounter; W55.01XA Bitten by cat, initial encounter; Y93.K9 Activity, other involving animal care; Y92.009 Unspecified place in unspecified non-institutional (private) residence as the place of occurrence of the external cause; Z79.899 Other long term (current) drug therapy